=== PATIENT | female | born 1955 | race Hispanic/Latino ===

== ENCOUNTER 2017-07-05 16:22 | Emergency (ER) | payer MEDICARE ==
[2017-07-05 17:12] LABS: Basophils # (Auto) 0.1 K/mm3 (0.0-0.1); Basophils % (Auto) 1.2 % (0.0-1.8); Eosinophils # (Auto) 0.3 K/mm3 (0.0-0.4); Eosinophils % (Auto) 2.3 % (0.0-4.3); Hematocrit 50.5 % (30.3-42.9); Hemoglobin 17.2 gm/dl (10.1-14.3); Lymphocytes # (Auto) 4.2 K/mm3 (1.2-5.4); Lymphocytes % (Auto) 36.1 % (13.4-35.0); Mean Corpuscular HGB Conc 34 % (30-34); Mean Corpuscular Hemoglobin 29 pg (28-32); Mean Corpuscular Volume 85 fl (79-97); Monocytes # (Auto) 0.9 K/mm3 (0.0-0.8); Monocytes % (Auto) 7.3 % (0.0-7.3); Platelet Count 295 K/mm3 (140-440); Red Blood Count 5.93 M/mm3 (3.65-5.03); Red Cell Distribution Width 13.2 % (13.2-15.2)
--- NOTE | 2017-07-05 17:16 | Cat Scan Report ---
FINAL REPORT EXAM: CT HEAD/BRAIN WO CON HISTORY: neuro deficits < 6hrs or sx present upon awakening TECHNIQUE: CT head without contrast PRIORS: There are no prior studies submitted for comparison FINDINGS: There is hypodensity and volume loss right posterior temporal/parietal region most consistent with a remote infarct. No acute appearing parenchymal abnormalities are identified. No evidence for acute intra or extra-axial hemorrhage. Ventricles and sulci are within normal limits. No evidence for mass effect or midline shift. Bony calvarium is intact. Visualized portions of the mastoids and paranasal sinuses are unremarkable. IMPRESSION: Remote right posterior temporal/parietal infarct No acute abnormality identified
[2017-07-05] MEDS ORDERED: ASPIRIN PO ONE (17:17)
--- NOTE | 2017-07-05 17:22 | Emergency Department Report ---
ED Neuro Deficit HPI - General Chief Complaint: Neuro Symptoms/Deficit Stated Complaint: STROKE-LIKE SYMPTOMS Time Seen by Provider: 07/05/17 17:04 Source: patient Mode of arrival: Ambulatory Limitations: No Limitations - History of Present Illness Initial Comments: 62 yo female who was brought in via her daughter due to cva/tia type symptoms. The daughter states that the patient was being spoken to about 20 minutes prior to arrival and was responding to conversation. However, she was speaking with words that didn't make any sense. Daughter also noted a left mouth droop with associated drooling. There was no upper/lower weakness per the daughter. The patient in the ED is symptom free currently. -: unknown (prior to arrival ) Location: left face (mouth) History of same: No Place: home Severity: mild Quality: other (resolved ) On Anticoagulants: No Context: sudden onset Associated Symptoms: other (aphasia-resolved now) Treatments Prior to Arrival: none - Related Data Home Medications: Previous Rx's Medication Instructions Recorded Last Taken Type Hydrochlorothiazide [HCTZ] 50 mg PO QDAY #30 tablet 05/02/13 Unknown Rx Lisinopril [Zestril TAB] 40 mg PO QDAY #30 tablet 05/02/13 Unknown Rx Simvastatin [Zocor TAB] 40 mg PO QHS #30 tablet 05/02/13 Unknown Rx metFORMIN [Glucophage] 500 mg PO BID #30 tablet 05/02/13 Unknown Rx traMADol [Ultram 50 MG tab] 50 mg PO Q6HR PRN #20 tablet 09/23/13 Unknown Rx HYDROcodone/APAP 7.5-325 [[place] 1 each PO Q6HR PRN #20 tablet 09/28/13 Unknown Rx 7.5/325 mg] Allergies/Adverse Reactions: Allergies Allergy/AdvReac Type Severity Reaction Status Date / Time Penicillins Allergy Intermediate Swelling Verified 04/26/13 15:18 ED Review of Systems ROS: Stated complaint: STROKE-LIKE SYMPTOMS Other details as noted in HPI Constitutional: denies: chills, fever Eyes: denies: eye pain, eye discharge, vision change ENT: denies: ear pain, throat pain Respiratory: denies: cough, shortness of breath, wheezing Cardiovascular: denies: chest pain, palpitations Endocrine: no symptoms reported Gastrointestinal: denies: abdominal pain, nausea, diarrhea Genitourinary: denies: urgency, dysuria, discharge Musculoskeletal: denies: back pain, joint swelling, arthralgia Skin: denies: rash, lesions Neurological: denies: headache, weakness, paresthesias Psychiatric: denies: anxiety, depression Hematological/Lymphatic: denies: easy bleeding, easy bruising ED Past Medical Hx - Past Medical History Previous Medical History?: Yes Hx Hypertension: Yes Hx Diabetes: Yes Hx Asthma: Yes Additional medical history: high cholesterol - Surgical History Past Surgical History?: Yes Additional Surgical History: tubal ligation, cyst removal - Social History Smoking Status: Current Every Day Smoker Substance Use Type: Prescribed - Medications Home Medications: Home Medications Medication Instructions Recorded Confirmed Last Taken Type Hydrochlorothiazide [HCTZ] 50 mg PO QDAY #30 tablet 05/02/13 09/28/13 Unknown Rx Lisinopril [Zestril TAB] 40 mg PO QDAY #30 tablet 05/02/13 09/28/13 Unknown Rx Simvastatin [Zocor TAB] 40 mg PO QHS #30 tablet 05/02/13 09/28/13 Unknown Rx metFORMIN [Glucophage] 500 mg PO BID #30 tablet 05/02/13 09/28/13 Unknown Rx traMADol [Ultram 50 MG tab] 50 mg PO Q6HR PRN #20 tablet 09/23/13 09/28/13 Unknown Rx HYDROcodone/APAP 7.5-325 [[place] 1 each PO Q6HR PRN #20 tablet 09/28/13 Unknown Rx 7.5/325 mg] ED Neuro Physical Exam - General Limitations: No Limitations General appearance: alert Suspected Stroke: No - Head Head exam: Present: atraumatic, normocephalic - Eye Eye exam: Present: normal appearance - ENT ENT exam: Present: mucous membranes moist - Neck Neck exam: Present: normal inspection - Respiratory Respiratory exam: Present: normal lung sounds bilaterally. Absent: respiratory distress - Cardiovascular Cardiovascular Exam: Present: tachycardia - Extremities Exam Extremities exam: Present: normal inspection - Back Exam Back exam: Present: normal inspection - Neurological Exam Neurological exam: Present: alert, oriented X3 - NIHSS Assessment Interval: Baseline 1a. Level of Consciousness: alert 1b. LOC Questions: answers correctly 1c. LOC Commands: performs tasks correctly 2. Best Gaze: normal 3. Visual: no visual loss 4. Facial Palsy: normal symmetrical movement 5b. Motor Arm Right: no drift 5a. Motor Arm Left: no drift 6a. Motor Leg Left: no drift 6b. Motor Leg Right: no drift 7. Limb Ataxia: absent 8. Sensory: normal 9. Best Language: no aphasia 10. Dysarthria: normal 11. Extinction/Inattention: no abnormality Total Score: 0 Stroke Severity: No Stroke Symptoms ED Course Vital Signs 07/05/17 07/05/17 16:46 17:09 Temperature 97.4 F L Pulse Rate 105 H Respiratory 18 18 Rate Blood Pressure 199/128 O2 Sat by Pulse 97 Oximetry - Lab Data Result diagrams: 07/05/17 17:02 07/05/17 17:08 Lab Results 07/05/17 07/05/17 07/05/17 Range/Units 17:02 17:02 17:02 WBC 11.8 H (4.5-11.0) K/mm3 RBC 5.93 H (3.65-5.03) M/mm3 Hgb 17.2 H (10.1-14.3) gm/dl Hct 50.5 H (30.3-42.9) % MCV 85 (79-97) fl MCH 29 (28-32) pg MCHC 34 (30-34) % RDW 13.2 (13.2-15.2) % Plt Count 295 (140-440) K/mm3 Lymph % (Auto) 36.1 H (13.4-35.0) % Jack % (Auto) 7.3 (0.0-7.3) % Eos % (Auto) 2.3 (0.0-4.3) % Baso % (Auto) 1.2 (0.0-1.8) % Lymph # 4.2 (1.2-5.4) K/mm3 Jack # 0.9 H (0.0-0.8) K/mm3 Eos # 0.3 (0.0-0.4) K/mm3 Baso # 0.1 (0.0-0.1) K/mm3 Seg Neutrophils % 53.1 (40.0-70.0) % Seg Neutrophils # 6.2 (1.8-7.7) K/mm3 PT 12.8 (12.2-14.9) Sec. INR 0.92 (0.87-1.13) APTT 26.9 (24.2-36.6) Sec. Thrombin Time (15.1-19.6) Sec. Sodium (137-145) mmol/L Potassium (3.6-5.0) mmol/L Chloride (98-107) mmol/L Carbon Dioxide (22-30) mmol/L Anion Gap mmol/L BUN (7-17) mg/dL Creatinine (0.7-1.2) mg/dL Estimated GFR ml/min BUN/Creatinine Ratio % Glucose (65-100) mg/dL POC Glucose (70-105) Calcium (8.4-10.2) mg/dL Total Bilirubin (0.1-1.2) mg/dL AST (5-40) units/L ALT (7-56) units/L Alkaline Phosphatase (35-129) units/L Total Creatine Kinase (30-135) units/L CK-MB (CK-2) (0.0-4.0) ng/mL CK-MB (CK-2) Rel Index (0-4) Troponin T < 0.010 (0.00-0.029) ng/mL Total Protein (6.3-8.2) g/dL Albumin (3.9-5) g/dL Albumin/Globulin Ratio % Urine Color (Yellow) Urine Turbidity (Clear) Urine pH (5.0-7.0) Ur Specific [place] (1.003-1.030) Urine Protein (Negative) mg/dL Urine Glucose (UA) (Negative) mg/dL Urine Ketones (Negative) mg/dL Urine Blood (Negative) Urine Nitrite (Negative) Urine Bilirubin (Negative) Urine Urobilinogen (<2.0) mg/dL Ur Leukocyte Esterase (Negative) Urine WBC (Auto) (0.0-6.0) /HPF Urine RBC (Auto) (0.0-6.0) /HPF U Epithel Cells (Auto) (0-13.0) /HPF Urine Bacteria (Auto) (Negative) /HPF Amorphous Crystals Urine Mucus /HPF 07/05/17 07/05/17 07/05/17 Range/Units 17:02 17:08 17:08 WBC (4.5-11.0) K/mm3 RBC (3.65-5.03) M/mm3 Hgb (10.1-14.3) gm/dl Hct (30.3-42.9) % MCV (79-97) fl MCH (28-32) pg MCHC (30-34) % RDW (13.2-15.2) % Plt Count (140-440) K/mm3 Lymph % (Auto) (13.4-35.0) % Jack % (Auto) (0.0-7.3) % Eos % (Auto) (0.0-4.3) % Baso % (Auto) (0.0-1.8) % Lymph # (1.2-5.4) K/mm3 Jack # (0.0-0.8) K/mm3 Eos # (0.0-0.4) K/mm3 Baso # (0.0-0.1) K/mm3 Seg Neutrophils % (40.0-70.0) % Seg Neutrophils # (1.8-7.7) K/mm3 PT (12.2-14.9) Sec. INR (0.87-1.13) APTT (24.2-36.6) Sec. Thrombin Time 16.8 (15.1-19.6) Sec. Sodium 137 (137-145) mmol/L Potassium 3.4 L (3.6-5.0) mmol/L Chloride 95.2 L (98-107) mmol/L Carbon Dioxide 27 (22-30) mmol/L Anion Gap 18 mmol/L BUN 7 (7-17) mg/dL Creatinine 0.5 L (0.7-1.2) mg/dL Estimated GFR > 60 ml/min BUN/Creatinine Ratio 14 % Glucose 214 H (65-100) mg/dL POC Glucose (70-105) Calcium 8.9 (8.4-10.2) mg/dL Total Bilirubin 0.60 (0.1-1.2) mg/dL AST 14 (5-40) units/L ALT 16 (7-56) units/L Alkaline Phosphatase 93 (35-129) units/L Total Creatine Kinase 42 (30-135) units/L CK-MB (CK-2) 1.4 (0.0-4.0) ng/mL CK-MB (CK-2) Rel Index 3.3 (0-4) Troponin T (0.00-0.029) ng/mL Total Protein 7.1 (6.3-8.2) g/dL Albumin 3.9 (3.9-5) g/dL Albumin/Globulin Ratio 1.2 % Urine Color (Yellow) Urine Turbidity (Clear) Urine pH (5.0-7.0) Ur Specific [place] (1.003-1.030) Urine Protein (Negative) mg/dL Urine Glucose (UA) (Negative) mg/dL Urine Ketones (Negative) mg/dL Urine Blood (Negative) Urine Nitrite (Negative) Urine Bilirubin (Negative) Urine Urobilinogen (<2.0) mg/dL Ur Leukocyte Esterase (Negative) Urine WBC (Auto) (0.0-6.0) /HPF Urine RBC (Auto) (0.0-6.0) /HPF U Epithel Cells (Auto) (0-13.0) /HPF Urine Bacteria (Auto) (Negative) /HPF Amorphous Crystals Urine Mucus /HPF 07/05/17 07/05/17 Range/Units 17:26 17:50 WBC (4.5-11.0) K/mm3 RBC (3.65-5.03) M/mm3 Hgb (10.1-14.3) gm/dl Hct (30.3-42.9) % MCV (79-97) fl MCH (28-32) pg MCHC (30-34) % RDW (13.2-15.2) % Plt Count (140-440) K/mm3 Lymph % (Auto) (13.4-35.0) % Jack % (Auto) (0.0-7.3) % Eos % (Auto) (0.0-4.3) % Baso % (Auto) (0.0-1.8) % Lymph # (1.2-5.4) K/mm3 Jack # (0.0-0.8) K/mm3 Eos # (0.0-0.4) K/mm3 Baso # (0.0-0.1) K/mm3 Seg Neutrophils % (40.0-70.0) % Seg Neutrophils # (1.8-7.7) K/mm3 PT (12.2-14.9) Sec. INR (0.87-1.13) APTT (24.2-36.6) Sec. Thrombin Time (15.1-19.6) Sec. Sodium (137-145) mmol/L Potassium (3.6-5.0) mmol/L Chloride (98-107) mmol/L Carbon Dioxide (22-30) mmol/L Anion Gap mmol/L BUN (7-17) mg/dL Creatinine (0.7-1.2) mg/dL Estimated GFR ml/min BUN/Creatinine Ratio % Glucose (65-100) mg/dL POC Glucose 194 H (70-105) Calcium (8.4-10.2) mg/dL Total Bilirubin (0.1-1.2) mg/dL AST (5-40) units/L ALT (7-56) units/L Alkaline Phosphatase (35-129) units/L Total Creatine Kinase (30-135) units/L CK-MB (CK-2) (0.0-4.0) ng/mL CK-MB (CK-2) Rel Index (0-4) Troponin T (0.00-0.029) ng/mL Total Protein (6.3-8.2) g/dL Albumin (3.9-5) g/dL Albumin/Globulin Ratio % Urine Color Yellow (Yellow) Urine Turbidity Clear (Clear) Urine pH 6.0 (5.0-7.0) Ur Specific [place] 1.005 (1.003-1.030) Urine Protein <15 mg/dl (Negative) mg/dL Urine Glucose (UA) >=500 (Negative) mg/dL Urine Ketones Neg (Negative) mg/dL Urine Blood Sm (Negative) Urine Nitrite Pos (Negative) Urine Bilirubin Neg (Negative) Urine Urobilinogen 2.0 (<2.0) mg/dL Ur Leukocyte Esterase Mod (Negative) Urine WBC (Auto) 14.0 H (0.0-6.0) /HPF Urine RBC (Auto) 5.0 (0.0-6.0) /HPF U Epithel Cells (Auto) 4.0 (0-13.0) /HPF Urine Bacteria (Auto) 4+ (Negative) /HPF Amorphous Crystals Few Urine Mucus Few /HPF - EKG Data -: EKG Interpreted by [place] EKG shows normal: sinus rhythm Rate: normal When compared to previous EKG there are: changes noted (sinus tachycardia with pvc's on prior ekg dated 09/28/13) Interpretation: normal EKG - Radiology Data Radiology results: report reviewed (Head CT-no acute changes) - Medical Decision Making CVA TIA Hypokalemia UTI - Differential Diagnosis cva, tia, hypokalemia, uti - Core Measures AMI Core Measures Followed: No Measure Exclusions: not indicated - Thrombolytic Inclusion/Exclusion Thrombolytic Exclusion Criteria: Symptom Onset > 3 Hours Thrombolytic Inclusion Criteria: Age 18 or Older Thrombolytic Contraindications: Rapidily Improving s/s Critical care attestation.: If time is entered above; I have spent that time in minutes in the direct care of this critically ill patient, excluding procedure time. ED Disposition Clinical Impression: TIA (transient ischemic attack), CVA (cerebral vascular accident), Hypokalemia , UTI (urinary tract infection) Disposition: 09 OP ADMIT IP TO THIS HOSP Is pt being admited?: Yes Does the pt Need Aspirin: Yes Condition: Stable Instructions: Transient Ischemic Attack (ED) Time of Disposition: 19:03
[2017-07-05 17:28] LABS: INR 0.92 (0.87-1.13); Partial Thromboplastin Time 26.9 Sec. (24.2-36.6)
[2017-07-05 17:46] LABS: Creatine Kinase MB 1.4 ng/mL (0.0-4.0)
[2017-07-05 17:49] LABS: Alanine Aminotransferase 16 units/L (7-56); Albumin 3.9 g/dL (3.9-5); BUN/Creatinine Ratio 14; Blood Urea Nitrogen 7 mg/dL (7-17); Calcium 8.9 mg/dL (8.4-10.2); Hemolysis Index 7
[2017-07-05 18:27] LABS: Amorphous Crystals,Urine Few; Bacteria,Urine 4+ /HPF (Negative); Bilirubin,Urine NEG (Negative); Blood,Urine SM (Negative); Color,Urine Yellow (Yellow); Mucus,Urine FEW /HPF; Nitrite,Urine POS (Negative); Protein,Urine <15 mg/dL mg/dL (Negative)
[2017-07-05] MEDS ORDERED: K-DUR PO ONE (18:53)
[2017-07-05] MEDS ORDERED: LEVAQUIN PO ONE (18:53)
[2017-07-05 20:23] VITALS: BP 156/82
== END 2017-07-05 21:49 | disposition left against medical advice (07) ==
LOC: ED 16:22
DX: I63.9 Cerebral infarction, unspecified (principal); G45.9 Transient cerebral ischemic attack, unspecified; E87.6 Hypokalemia; N39.0 Urinary tract infection, site not specified; I10 Essential (primary) hypertension; E11.9 Type 2 diabetes mellitus without complications; F17.200 Nicotine dependence, unspecified, uncomplicated
CPT/HCPCS: 36415; 70450; 80053; 81001; 82550; 82553; 82962; 84484; 85025; 85610; 85670; 85730; 93005; 93010

== ENCOUNTER 2018-07-18 17:33 | Emergency (ER) | payer MEDICARE ==
[2018-07-18 22:14] LABS: Basophils # (Auto) 0.1 K/mm3 (0.0-0.1); Eosinophils # (Auto) 0.3 K/mm3 (0.0-0.4); Eosinophils % (Auto) 2.3 % (0.0-4.3); Hematocrit 48.7 % (30.3-42.9); Hemoglobin 16.5 gm/dl (10.1-14.3); Lymphocytes # (Auto) 3.9 K/mm3 (1.2-5.4); Lymphocytes % (Auto) 33.5 % (13.4-35.0); Mean Corpuscular HGB Conc 34 % (30-34); Mean Corpuscular Volume 87 fl (79-97); Monocytes % (Auto) 8.2 % (0.0-7.3); Platelet Count 256 K/mm3 (140-440); Red Cell Distribution Width 13.3 % (13.2-15.2)
[2018-07-18 22:38] LABS: Alanine Aminotransferase 13 units/L (7-56); Albumin 3.9 g/dL (3.9-5); BUN/Creatinine Ratio 20; Blood Urea Nitrogen 8 mg/dL (7-17); Calcium 8.9 mg/dL (8.4-10.2); Hemolysis Index 13
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
[2018-07-18] MEDS ORDERED: NACL 0.9% 1000 ML 1,000 ML IV ONE (23:50)
[2018-07-18 23:52] LABS: Bilirubin,Urine NEG (Negative); Blood,Urine NEG (Negative); Protein,Urine <15 mg/dL mg/dL (Negative); Urobilinogen,Urine < 2.0 mg/dL (<2.0)
[2018-07-18 23:55] LABS: Color,Urine Colorless (Yellow); RBC,Urine < 1.0 /HPF (0.0-6.0); WBC,Urine < 1.0 /HPF (0.0-6.0)
--- NOTE | 2018-07-19 00:06 | XRay Report ---
FINAL REPORT EXAM: XR CHEST ROUTINE 2V HISTORY: numbness TECHNIQUE: 2 views of the chest. PRIORS: None. FINDINGS: The cardiomediastinal silhouette appears normal. The lungs are clear. There is multilevel degenerativ e disc disease of the thoracic spine. IMPRESSION: No evidence of acute cardiopulmonary disease
[2018-07-19 01:15] VITALS: BP 160/92
== END 2018-07-19 01:14 | disposition home or self-care (01) ==
LOC: ED 17:33
DX: E11.40 Type 2 diabetes mellitus with diabetic neuropathy, unspecified (principal); M79.601 Pain in right arm; M79.602 Pain in left arm; M79.604 Pain in right leg; M79.605 Pain in left leg; J45.909 Unspecified asthma, uncomplicated; E78.00 Pure hypercholesterolemia, unspecified; F17.200 Nicotine dependence, unspecified, uncomplicated; Z98.51 Tubal ligation status; Z79.899 Other long term (current) drug therapy; I10 Essential (primary) hypertension; Z88.0 Allergy status to penicillin
CPT/HCPCS: 36415; 71046; 80053; 81001; 84484; 85025

== ENCOUNTER 2018-08-31 19:03 | Emergency (ER) | payer MEDICARE ==
[2018-08-31 19:27] VITALS: BP 151/103
--- NOTE | 2018-08-31 19:31 | Emergency Department Report ---
Chief Complaint: Extremity Injury, Lower Stated Complaint: RIGHT ANKLE PAIN Time Seen by Provider: 08/31/18 19:29 - HPI History of Present Illness: This is a 63 y.o. female that presents with swelling and pain to right ankle and foot s/p fall on Monday. - ROS Review of Systems: swelling and pain to right foot and ankle - Exam Vital Signs: Vital Signs 08/31/18 19:22 Temperature 97.8 F Pulse Rate 131 H Respiratory 16 Rate Blood Pressure 151/103 O2 Sat by Pulse 97 Oximetry MSE screening note: Focused history and physical exam performed. Due to findings the following was ordered: XR of right foot and ankle. ACC for further evaluation. ED Disposition for MSE Condition: Stable
--- NOTE | 2018-08-31 21:47 | XRay Report ---
PROCEDURE: XR ANKLE 3+V RT TECHNIQUE: Right ankle radiographs, AP, lateral, and oblique views. HISTORY: Right ankle and foot swelling. COMPARISONS: None . FINDINGS: Fracture (s) and/or Dislocation(s): None . Alignment: Normal . Joint space(s): Mild narrowing of the joint spaces . Soft tissues: Mild soft tissue swelling . Bone mineralization: Normal . Foreign bodies: None . Calcaneal spurring: Small inferior spur . IMPRESSION: Mild arthritis. Mild soft tissue swelling. . This document is electronically signed by Jana Khanna DO., August 31 2018 09:45:35 PM ET
--- NOTE | 2018-08-31 21:49 | XRay Report ---
PROCEDURE: XR FOOT 2V RT TECHNIQUE: Right foot radiographs, AP and lateral views. HISTORY: right ankle and foot swelling COMPARISONS: None . FINDINGS: Fracture (s) and/or Dislocation(s): None . Alignment: Normal . Joint space(s): Moderate narrowing of the joint spaces . Soft tissues: Moderate soft tissue swelling . Bone mineralization: Normal . Foreign bodies: None . Calcaneal spurring: Small inferior spur . IMPRESSION: There is moderate arthritis with moderate soft tissue swelling. No acute fractures ident ified. . This document is electronically signed by Jana Khanna DO., August 31 2018 09:46:51 PM ET
[2018-08-31] MEDS ORDERED: TYLENOL PO ONE (22:13)
[2018-08-31] MEDS ORDERED: IBUPROFEN PO ONE (22:13)
--- NOTE | 2018-08-31 22:43 | Emergency Department Report ---
ED General Adult HPI - General Chief complaint: Extremity Injury, Lower Stated complaint: RIGHT ANKLE PAIN Time Seen by Provider: 08/31/18 19:29 Source: patient, family Mode of arrival: Ambulatory Limitations: No Limitations - History of Present Illness Initial comments: Patient is a 63-year-old femalein the past medical history who presents with right ankle pain. Patient's right ankle pain occurred 2 days ago all she was at outside facility. She states that the ankle pain is a 6 out of 10 walking and moving makes it worse and nothing makes it better the pain is intermittent patient states that she doesn't smoke and doesn't drink. Severity scale (0 -10): 10 - Related Data Previous Rx's Medication Instructions Recorded Last Taken Type Hydrochlorothiazide [HCTZ] 50 mg PO QDAY #30 tablet 05/02/13 Unknown Rx HYDROcodone/APAP 7.5-325 [[place] 1 each PO Q6HR PRN #20 tablet 09/28/13 Unknown Rx 7.5/325 mg] Acetaminophen [Tylenol Extra 1,000 mg PO QID PRN #30 tablet 07/19/18 Unknown Rx Strength] Gabapentin [Neurontin] 100 mg PO Q8HR #30 capsule 07/19/18 Unknown Rx Lisinopril [Zestril TAB] 40 mg PO QDAY #30 tablet 07/19/18 Unknown Rx Simvastatin [Zocor TAB] 40 mg PO QHS #30 tablet 07/19/18 Unknown Rx metFORMIN [Glucophage] 500 mg PO BID #30 tablet 07/19/18 Unknown Rx Diclofenac Sodium [Voltaren] 100 gm TP Q6H PRN #1 gel..gram. 08/31/18 Unknown Rx traMADol [Ultram 50 MG tab] 50 mg PO Q6HR PRN #13 tablet 08/31/18 Unknown Rx Allergies Allergy/AdvReac Type Severity Reaction Status Date / Time Penicillins Allergy Intermediate Swelling Verified 04/26/13 15:18 ED Review of Systems ROS: Stated complaint: RIGHT ANKLE PAIN Other details as noted in HPI Constitutional: denies: chills, fever Eyes: denies: eye pain, eye discharge, vision change ENT: denies: ear pain, throat pain Respiratory: denies: cough, shortness of breath, wheezing Cardiovascular: denies: chest pain, palpitations Endocrine: no symptoms reported Gastrointestinal: denies: abdominal pain, nausea, diarrhea Genitourinary: denies: urgency, dysuria, discharge Musculoskeletal: as per HPI, arthralgia. denies: back pain, joint swelling Skin: denies: rash, lesions Neurological: denies: headache, weakness, paresthesias Psychiatric: denies: anxiety, depression Hematological/Lymphatic: denies: easy bleeding, easy bruising ED Past Medical Hx - Past Medical History Hx Hypertension: Yes Hx Diabetes: Yes Hx Asthma: Yes Additional medical history: high cholesterol - Surgical History Additional Surgical History: tubal ligation, cyst removal - Social History Smoking Status: Current Every Day Smoker Substance Use Type: None - Medications Home Medications: Home Medications Medication Instructions Recorded Confirmed Last Taken Type Hydrochlorothiazide [HCTZ] 50 mg PO QDAY #30 tablet 05/02/13 09/28/13 Unknown Rx HYDROcodone/APAP 7.5-325 [[place] 1 each PO Q6HR PRN #20 tablet 09/28/13 Unknown Rx 7.5/325 mg] Acetaminophen [Tylenol Extra 1,000 mg PO QID PRN #30 tablet 07/19/18 Unknown Rx Strength] Gabapentin [Neurontin] 100 mg PO Q8HR #30 capsule 07/19/18 Unknown Rx Lisinopril [Zestril TAB] 40 mg PO QDAY #30 tablet 07/19/18 Unknown Rx Simvastatin [Zocor TAB] 40 mg PO QHS #30 tablet 07/19/18 Unknown Rx metFORMIN [Glucophage] 500 mg PO BID #30 tablet 07/19/18 Unknown Rx Diclofenac Sodium [Voltaren] 100 gm TP Q6H PRN #1 gel..gram. 08/31/18 Unknown Rx traMADol [Ultram 50 MG tab] 50 mg PO Q6HR PRN #13 tablet 08/31/18 Unknown Rx ED Physical Exam - General Limitations: No Limitations General appearance: alert, in no apparent distress - Head Head exam: Present: atraumatic, normocephalic - Eye Eye exam: Present: normal appearance - ENT ENT exam: Present: mucous membranes moist - Neck Neck exam: Present: normal inspection - Respiratory Respiratory exam: Present: normal lung sounds bilaterally. Absent: respiratory distress - Cardiovascular Cardiovascular Exam: Present: regular rate, normal rhythm. Absent: systolic murmur, diastolic murmur, rubs, gallop - GI/Abdominal GI/Abdominal exam: Present: soft, normal bowel sounds - Extremities Exam Extremities exam: Present: normal inspection, tenderness (right lateral ) - Back Exam Back exam: Present: normal inspection - Neurological Exam Neurological exam: Present: alert, oriented X3 - Psychiatric Psychiatric exam: Present: normal affect, normal mood - Skin Skin exam: Present: warm, dry, intact, normal color. Absent: rash ED Course Vital Signs 08/31/18 19:22 Temperature 97.8 F Pulse Rate 131 H Respiratory 16 Rate Blood Pressure 151/103 O2 Sat by Pulse 97 Oximetry ED Medical Decision Making - Radiology Data Radiology results: report reviewed, image reviewed X-ray right foot: Shows no acute osseous injury X-ray right ankle: Shows no acute osseous injury - Medical Decision Making Chief Medical diagnosis: Right ankle sprain Differential diagnosis: Right ankle fracture, right ankle strain All the x-rays and oral pain medication patient is feeling better x-rays are unremarkable I will send the patient home with follow-up with PCP patient agrees with plan additional verbal discharge instructions were given. Critical care attestation.: If time is entered above; I have spent that time in minutes in the direct care of this critically ill patient, excluding procedure time. ED Disposition Clinical Impression: Right ankle pain Qualifiers: Chronicity: acute Qualified Code(s): M25.571 - Pain in right ankle and joints of right foot Disposition: DC-01 TO HOME OR SELFCARE Is pt being admited?: No Does the pt Need Aspirin: No Condition: Stable Instructions: Ankle Sprain (ED) Prescriptions: traMADol [Ultram 50 MG tab] 50 mg PO Q6HR PRN #13 tablet PRN Reason: Pain Diclofenac Sodium [Voltaren] 100 gm TP Q6H PRN #1 gel..gram. PRN Reason: Pain, Moderate (4-6) Referrals: KRISTOPHER PEREZ MD [Primary Care Provider] - 3-5 Days
== END 2018-08-31 23:00 | disposition home or self-care (01) ==
LOC: ED 19:03
DX: M25.571 Pain in right ankle and joints of right foot (principal); I10 Essential (primary) hypertension; E11.9 Type 2 diabetes mellitus without complications; J45.909 Unspecified asthma, uncomplicated; F17.200 Nicotine dependence, unspecified, uncomplicated; E78.00 Pure hypercholesterolemia, unspecified; Z98.51 Tubal ligation status; Z79.899 Other long term (current) drug therapy; Z79.84 Long term (current) use of oral hypoglycemic drugs; Z88.0 Allergy status to penicillin

== ENCOUNTER 2019-03-27 19:45 | Emergency (ER) | payer MEDICARE ==
--- NOTE | 2019-03-27 20:01 | Emergency Department Report ---
Blank Doc - Documentation Documentation: 63-year-old female that presents with URI symptoms. This initial assessment/diagnostic orders/clinical plan/treatment(s) is/are subject to change based on patient's health status, clinical progression and re- assessment by fellow clinical providers in the ED. Further treatment and workup at subsequent clinical providers discretion. Patient/guardians urged not to elope from the ED as their condition may be serious if not clinically assessed and managed. Initial orders include: 1- Patient sent to [facility] for further evaluation and treatment 2- CXR
--- NOTE | 2019-03-27 20:54 | XRay Report ---
CHEST 2 VIEWS INDICATION / CLINICAL INFORMATION: cough. COMPARISON: 07/18/2018 FINDINGS: SUPPORT DEVICES: None. HEART / MEDIASTINUM: No significant abnormality. LUNGS / PLEURA: No significant pulmonary or pleural abnormality. No pneumothorax. ADDITIONAL FINDINGS: No significant additional findings. IMPRESSION: 1. No acute findings. Signer Name: Haim Damon MD Signed: 03/27/2019 8:50 PM Workstation Name: [id number]
--- NOTE | 2019-03-27 21:44 | Emergency Department Report ---
- General Chief Complaint: Upper Respiratory Infection Stated Complaint: COLD SX Time Seen by Provider: 03/27/19 20:00 Source: patient, family Mode of arrival: Ambulatory Limitations: Physical Limitation - History of Present Illness Initial Comments: Patient is a 63-year-old female presents emergency room with complaints of URI symptoms that began 2 days ago. Associated dry cough, sneezing, rhinorrhea, watery eyes. Denies any fever, shortness of breath, chest pain, any other symptoms. pts daughter has the same symptoms. she has not tried any medications to relieve her symptoms. She has a past medical history of hypertension, hyperlipidemia, and diabetes. She states she is a smoker. She states that she takes lisinopril and amlodipine for her blood pressure and state s she took them today. - Related Data Previous Rx's Medication Instructions Recorded Last Taken Type Hydrochlorothiazide [HCTZ] 50 mg PO QDAY #30 tablet 05/02/13 Unknown Rx HYDROcodone/APAP 7.5-325 [[place] 1 each PO Q6HR PRN #20 tablet 09/28/13 Unknown Rx 7.5/325 mg] Acetaminophen [Tylenol Extra 1,000 mg PO QID PRN #30 tablet 07/19/18 Unknown Rx Strength] Gabapentin [Neurontin] 100 mg PO Q8HR #30 capsule 07/19/18 Unknown Rx Lisinopril [Zestril TAB] 40 mg PO QDAY #30 tablet 07/19/18 Unknown Rx Simvastatin [Zocor TAB] 40 mg PO QHS #30 tablet 07/19/18 Unknown Rx metFORMIN [Glucophage] 500 mg PO BID #30 tablet 07/19/18 Unknown Rx Diclofenac Sodium [Voltaren] 100 gm TP Q6H PRN #1 gel..gram. 08/31/18 Unknown Rx traMADol [Ultram 50 MG tab] 50 mg PO Q6HR PRN #13 tablet 08/31/18 Unknown Rx Benzonatate [Tessalon Perles] 100 mg PO Q8HR PRN #14 capsule 03/27/19 Unknown Rx Cetirizine HCl [Zyrtec 10mg tab] 10 mg PO DAILY #14 tablet 03/27/19 Unknown Rx Fluticasone [Flonase] 1 spray NS QDAY #1 bottle 03/27/19 Unknown Rx Oseltamivir [Tamiflu] 75 mg PO BID 5 Days #10 cap 03/27/19 Unknown Rx Allergies Allergy/AdvReac Type Severity Reaction Status Date / Time Penicillins Allergy Intermediate Swelling Verified 04/26/13 15:18 ED Review of Systems ROS: Stated complaint: COLD SX Other details as noted in HPI Comment: All other systems reviewed and negative ED Past Medical Hx - Past Medical History Previous Medical History?: Yes Hx Hypertension: Yes Hx Diabetes: Yes Hx Asthma: Yes Additional medical history: high cholesterol - Surgical History Past Surgical History?: Yes Additional Surgical History: tubal ligation, cyst removal - Social History Smoking Status: Never Smoker Substance Use Type: None - Medications Home Medications: Home Medications Medication Instructions Recorded Confirmed Last Taken Type Hydrochlorothiazide [HCTZ] 50 mg PO QDAY #30 tablet 05/02/13 09/28/13 Unknown Rx HYDROcodone/APAP 7.5-325 [[place] 1 each PO Q6HR PRN #20 tablet 09/28/13 Unknown Rx 7.5/325 mg] Acetaminophen [Tylenol Extra 1,000 mg PO QID PRN #30 tablet 07/19/18 Unknown Rx Strength] Gabapentin [Neurontin] 100 mg PO Q8HR #30 capsule 07/19/18 Unknown Rx Lisinopril [Zestril TAB] 40 mg PO QDAY #30 tablet 07/19/18 Unknown Rx Simvastatin [Zocor TAB] 40 mg PO QHS #30 tablet 07/19/18 Unknown Rx metFORMIN [Glucophage] 500 mg PO BID #30 tablet 07/19/18 Unknown Rx Diclofenac Sodium [Voltaren] 100 gm TP Q6H PRN #1 gel..gram. 08/31/18 Unknown Rx traMADol [Ultram 50 MG tab] 50 mg PO Q6HR PRN #13 tablet 08/31/18 Unknown Rx Benzonatate [Tessalon Perles] 100 mg PO Q8HR PRN #14 capsule 03/27/19 Unknown Rx Cetirizine HCl [Zyrtec 10mg tab] 10 mg PO DAILY #14 tablet 03/27/19 Unknown Rx Fluticasone [Flonase] 1 spray NS QDAY #1 bottle 03/27/19 Unknown Rx Oseltamivir [Tamiflu] 75 mg PO BID 5 Days #10 cap 03/27/19 Unknown Rx ED Physical Exam - General Limitations: Physical Limitation General appearance: alert, in no apparent distress - Head Head exam: Present: atraumatic, normocephalic - Eye Eye exam: Present: normal appearance - ENT ENT exam: Present: mucous membranes moist - Respiratory Respiratory exam: Present: normal lung sounds bilaterally. Absent: respiratory distress, wheezes, rales, rhonchi, stridor, chest wall tenderness, accessory muscle use, decreased breath sounds, prolonged expiratory - Cardiovascular Cardiovascular Exam: Present: regular rate, tachycardia (mildly), normal heart sounds. Absent: systolic murmur, diastolic murmur, rubs, gallop - Neurological Exam Neurological exam: Present: alert, oriented X3 - Psychiatric Psychiatric exam: Present: normal affect, normal mood - Skin Skin exam: Present: warm, dry, intact ED Course Vital Signs 03/27/19 03/27/19 19:59 20:02 Temperature 98.5 F 98.3 F Pulse Rate 121 H 118 H Respiratory 18 20 Rate Blood Pressure 164/108 Blood Pressure 174/107 [Left] O2 Sat by Pulse 100 96 Oximetry ED Medical Decision Making - Radiology Data Radiology results: report reviewed CHEST 2 VIEWS INDICATION / CLINICAL INFORMATION: cough. COMPARISON: 07/18/2018 FINDINGS: SUPPORT DEVICES: None. HEART / MEDIASTINUM: No significant abnormality. LUNGS / PLEURA: No significant pulmonary or pleural abnormality. No pneumothorax. ADDITIONAL FINDINGS: No significant additional findings. IMPRESSION: 1. No acute findings. Signer Name: Haim Damon MD Signed: 03/27/2019 8:50 PM Workstation Name: [id number] Transcribed By: HOA Dictated By: Haim Damon MD Electronically Authenticated By: Haim Damon MD Signed Date/Time: 03/27/192049 - Medical Decision Making Patient is a 63-year-old female presents emergency room with complaints of URI symptoms that began 2 days ago. Associated dry cough, sneezing, rhinorrhea, watery eyes. Denies any fever, shortness of breath, chest pain, any other symptoms. pts daughter has the same symptoms. she has not tried any medications to relieve her symptoms. She has a past medical history of hypertension, hyperlipidemia, and diabetes. She states she is a smoker. She states that she takes lisinopril and amlodipine for her blood pressure and stat es she took them today. vitals with elevated HR and elevated BP. lungs are clear bilaterally without w/r/r. CXR with no acute process. wells criteria very low risk for PE making PE very unlikely. Patient with clinical signs and symptoms of influenza I will treat patient with Tamiflu as her symptoms began within 48 hours. Patient given prescription for Tamiflu, Flonase, Zyrtec, Tessalon Perles. advised pt to please take medication as prescribed. Please increase your water intake over the next several days. Follow-up with a primary care doctor in the next 2-3 days. Return to the emergency room for any new or worsening symptoms. please discuss with your primary care doctor about the elevation in your blood pressure during todays visit. please keep a blood pressure log and take your blood pressure three times a day and take to your primary care doctor. eat a low sodium diet. - Differential Diagnosis PNA, URI, viral syndrome, influenza, bronchitis, allergies Critical care attestation.: If time is entered above; I have spent that time in minutes in the direct care of this critically ill patient, excluding procedure time. ED Disposition Clinical Impression: Influenza, Elevated blood pressure reading Disposition: TO HOME OR SELFCARE Is pt being admited?: No Does the pt Need Aspirin: No Condition: Stable Instructions: Influenza (ED) Additional Instructions: Please take medication as prescribed. Please increase your water intake over the next several days. Follow-up with a primary care doctor in the next 2-3 days. Return to the emergency room for any new or worsening symptoms. please discuss with your primary care doctor about the elevation in your blood pressure during todays visit. please keep a blood pressure log and take your blood pressure three times a day and take to your primary care doctor. eat a low sodium diet. Prescriptions: Fluticasone [Flonase] 1 spray NS QDAY #1 bottle Oseltamivir [Tamiflu] 75 mg PO BID 5 Days #10 cap Benzonatate [Tessalon Perles] 100 mg PO Q8HR PRN #14 capsule PRN Reason: cough Cetirizine HCl [Zyrtec 10mg tab] 10 mg PO DAILY #14 tablet Referrals: [facility] [Provider Group] - 2-3 Days Forms: Work/School Release Form(ED) Time of Disposition: 22:26 Print Language: [place]
[2019-03-27 22:38] VITALS: BP 174/107
== END 2019-03-27 22:48 | disposition home or self-care (01) ==
LOC: ED 19:45
DX: J11.1 Influenza due to unidentified influenza virus with other respiratory manifestations (principal); I10 Essential (primary) hypertension; E11.9 Type 2 diabetes mellitus without complications; J45.909 Unspecified asthma, uncomplicated; E78.00 Pure hypercholesterolemia, unspecified; Z98.51 Tubal ligation status; Z79.899 Other long term (current) drug therapy; Z98.890 Other specified postprocedural states; Z88.0 Allergy status to penicillin; Z79.84 Long term (current) use of oral hypoglycemic drugs
CPT/HCPCS: 71046